=== PATIENT | female | born 1940 | race Caucasian/White ===

== ENCOUNTER → 2017-05-07 | Outpatient (CLI) | payer BC ==
[~2017-05-07] MED LIST: ASPI-113 PO; AZAT50TA17 PO; AZAT50TA33 PO; CALCTAB5 PO; CHOL100027 PO; CYAN100020 PO; FERR27TA5 PO; GLUCTAB18 PO; IBAN150T PO; MULT-506 PO; PRED1SUS3 OPL; PRLSR20 PO; SERT-234 PO; SIMV20TA2 PO; SOY40TAB5 PO
== END | disposition home or self-care (01) ==
LOC: C.LABMFLN 17:59
PROVIDERS: ATTEND Family Medicine
DX: R10.30 Lower abdominal pain, unspecified (principal)

== ENCOUNTER → 2017-05-11 | Outpatient (CLI) | payer BC ==
[2017-05-11 18:36] LABS: BLOOD UREA NITROGEN 22 mg/dl (7-18); CREATININE 1.08 mg/dl (0.60-1.20)
== END | disposition home or self-care (01) ==
LOC: C.LABMFLN 12:50
PROVIDERS: ATTEND Family Medicine
DX: R31.29 Other microscopic hematuria (principal); R10.30 Lower abdominal pain, unspecified

== ENCOUNTER → 2017-05-14 | Outpatient (CLI) | payer BC ==
[~2017-05-14] MED LIST changes: +OPTIRAY 320 IV PRN
--- NOTE | 2017-05-14 13:28 | DIAGNOSTIC IMAGING REPORT ---
CT OF THE ABDOMEN AND PELVIS WITH AND WITHOUT CONTRAST HEMATURIA PROTOCOL CLINICAL HISTORY: Microscopic hematuria. Abdominal pain. COMPARISON STUDY: CT of the abdomen and pelvis April 16, 2015. TECHNIQUE: Unenhanced and split bolus phase imaging of the abdomen and pelvis was performed. Injection of 94 cc of Optiray 320 IV was uneventful. A dose lowering technique was utilized adhering to the principles of ALARA. CT DOSE: 719.60 mGycm FINDINGS: Visualized portions of the lower chest demonstrate multifocal nodular opacities, several of which are in a tree-in-bud distribution with mild bronchiectasis and mild multifocal mucus plugging. The heart is mildly enlarged. The liver, spleen, adrenal glands and pancreas are unremarkable. There is no evidence for a bowel obstruction. Mild gallbladder distention is unchanged. No pericholecystic infiltration. The appendix is likely surgically absent. There is no bowel obstruction. There is no lymphadenopathy. No hydronephrosis is present. Note is made of a probable 5 mm cyst arising from the lower pole of the left kidney. No ureteral or bladder calculi are present. There is a punctate calculus within the upper pole of the left kidney shown on axial image 91 of 391. The right ureter is not well opacified. Bladder is opacified. No urothelial lesions are identified. Bladder is underdistended. There are no suspicious osseous lesions. The cystic pelvic lesion shown on exam of April 16, 2015 is no longer visualized. IMPRESSION: 1. Punctate left renal calculus. No ureteral calculi or hydronephrosis. 2. No upper tract urothelial lesions identified. Suboptimal opacification of the right ureter and bladder. 3. Mild tree-in-bud nodules, bronchiectasis and mucus plugging within visualized portions of the lower lungs which favors an infectious process. Electronically signed by: Alex Madden M.D. 05/14/2017 1:26 PM Dictated Date/Time: 05/14/2017 1:13 PM
== END | disposition home or self-care (01) ==
LOC: C.CTS 12:05
PROVIDERS: ATTEND Family Medicine
DX: R31.29 Other microscopic hematuria (principal); R10.30 Lower abdominal pain, unspecified